=== PATIENT | male | born 1995 | race Caucasian/White ===

== ENCOUNTER 2020-10-11 09:37 | Outpatient (RCR) | payer BC, SELFPAY ==
[2015-07-08 14:38] VITALS: BMI 33.4
== END 2020-11-15 23:59 ==
LOC: IMMUN 09:37
PROVIDERS: Referring Provider Family Medicine; Visit Provider Family Medicine
DX: Z23 Encounter for immunization (principal)
CPT/HCPCS: 0001A; 0002A; 91300